=== PATIENT | female | born 1940 ===

== ENCOUNTER → 2016-11-20 | Outpatient (REF) | payer MEDICARE | LOC: M LAB REF 13:04 | PROVIDERS: ATTEND Physician Assistant | DX: R30.0 Dysuria (principal) ==

== ENCOUNTER → 2016-11-27 | Outpatient (REF) | payer MEDICARE | LOC: M LAB REF 16:19 | PROVIDERS: ATTEND Physician Assistant | DX: R30.0 Dysuria (principal) ==